=== PATIENT | female | born 1960 | race Caucasian/White ===

== ENCOUNTER 2017-01-22 17:37 | Emergency (ER) | payer OTHER ==
[~2017-01-22] VITALS: Ht 167.6 cm; Wt 105.0 kg
[~2017-01-22 17:37] MED LIST: LEVO125T3 PO; LORT5TAB PO; MELO15TA2 PO; PROT40TA PO
[2017-01-22 17:55] VITALS: BP 173/88; PULSE 75; RESP 19; TEMP 97.2; O2SAT 100
[2017-01-22] MEDS ORDERED: LEVO125T4 PO (18:11)
[2017-01-22] MEDS ORDERED: PANT40TA3 PO (18:11)
[2017-01-22] MEDS ORDERED: TYLETAB34 PO (18:11)
[2017-01-22] MEDS ORDERED: PROC5TAB PO (18:11)
--- NOTE | 2017-01-22 18:43 | PD ---
HPI Chief Complaint: Headache Time Seen by Provider: 18:29 Travel History International Travel<30 days: No Contact w/Intl Traveler<30days: No Traveled to known affect area: No History of Present Illness HPI 56yo F with PMH of parotid gland cancer s/p radiation 5 years ago here with c/o generalized headache started at 3pm today. Said she has been having headache in the last few months but this headache had a faster onset and feels more severe. Associated with photophobia and nausea. Denies any fever, neck pain, visual changes, chest pain, sob, n/v, abdominal pain, focal weakness or numbness. Pt has history of pituitary adenoma as well. She said she had an MRI brain at [facility] at 4pm today because it was scheduled and does not know the results. PFSH Past Medical History Cancer: Yes (Melanoma, parotid ) Cardiovascular Problems: Yes (Dysrhythmias ) Chemotherapy: No Diminished Hearing: No Endocrine: Yes Gastrointestinal Disorders: Yes (Crohn's) GERD: Yes Hypertension: Yes Medical other: Yes (Pituitary tumor ) Immunizations Current: No Radiation Therapy: Yes Thyroid Disease: Yes (Thyroidectomy) Tetanus Vaccination: > 5 Years Influenza Vaccination: No ?: Not Menopausal: Yes : 3 Para: 3 Ovarian Cysts: Yes Tubal Ligation: Yes Past Surgical History Abdominal Surgery: Yes (Gastric bypass) Appendectomy: Yes Cholecystectomy: Yes Endocrine Surgery: Yes (Thyroidectomy) Hysterectomy: Yes Other Surgery: Yes (Rt. parotidectomy ) Social History Alcohol Use: No Tobacco Use: No Substance Use: No Allergies-Medications (Allergen,Severity, Reaction): Coded Allergies: oxytetracycline (Unverified Allergy, Unknown, UNKNOWN, 01/22/17) Reported Meds & Prescriptions Reported Meds & Active Scripts Active Reported Prochlorperazine Maleate 5 Mg Tab 5 Mg PO TID PRN Levothyroxine (Levothyroxine Sodium) 125 Mcg Tab 125 Mcg PO DAILY Tylenol-Codeine #3 (Acetaminophen-Codeine) 300-30 mg Tab 1 Tab PO TID PRN Pantoprazole (Pantoprazole Sodium) 40 Mg Tab 40 Mg PO BID Review of Systems Except as stated in HPI: all other systems reviewed are Neg Physical Exam Narrative GENERAL: 56yo F in moderate distress. SKIN: Focused skin assessment warm/dry. HEAD: Atraumatic. Normocephalic. EYES: Pupils equal and round at 3mm bilaterally. No scleral icterus. No injection or drainage. ENT: No nasal bleeding or discharge. Mucous membranes pink and moist. NECK: Trachea midline. No JVD. CARDIOVASCULAR: Regular rate and rhythm. No murmur appreciated. RESPIRATORY: No accessory muscle use. Clear to auscultation. Breath sounds equal bilaterally. GASTROINTESTINAL: Abdomen soft, non-tender, nondistended. MUSCULOSKELETAL: No obvious deformities. No clubbing. No cyanosis. No edema. NEUROLOGICAL: Awake and alert. No obvious cranial nerve deficits. Motor grossly within normal limits. Normal speech. PSYCHIATRIC: Appropriate mood and affect; insight and judgment normal. Data Data Last Documented VS Vital Signs Date Time Temp Pulse Resp B/P (MAP) Pulse Ox O2 Delivery O2 Flow Rate FiO2 01/22/17 21:03 77 16 147/62 (90) 100 01/22/17 19:25 Room Air 01/22/17 17:[address] Brain W/O Iv Contrast(Rout) (01/22/17 ) Ondansetron Inj (Zofran Inj) (01/22/17 18:45) Prochlorperazine Inj (Compazine Inj) (01/22/17 18:45) Ketorolac Inj (Toradol Inj) (01/22/17 19:15) MDM Medical Decision Making Medical Screen Exam Complete: Yes Emergency Medical Condition: Yes Differential Diagnosis Migraine headache vs. tension headache vs. SAH Narrative Course 56yo F with headache that started at 3pm today. Pt states it is worst than her usual headache and onset is more acute. CT brain ordered to r/o SAH since it is less than 6 hours since onset of headache. Pt given zofran and compazine. CT brain negative so pt given toradol. Unable to obtain MRI results from [facility]. Pt seen at end of my shift and sign out to next team to reevaluate and disposition. Diagnosis Primary Impression: Headache Qualified Codes: R51 - Headache Yamila Bragg DO Jan 22, 2017 18:43
[2017-01-22] MEDS ORDERED: ONDANSETRON HCL 4 MG/2 ML VIAL IV PUSH ONE (18:45)
[2017-01-22] MEDS ORDERED: PROCHLORPERAZINE INJ 10 MG/2 ML VIAL IV PUSH ONE (18:45)
[2017-01-22] MEDS ORDERED: KETOROLAC TROMETHAMINE 30 MG/ML (IVP) VIAL IV PUSH ONE (19:15)
[2017-01-22 19:25] VITALS: BP 165/77; PULSE 82; RESP 16; O2SAT 99
--- NOTE | 2017-01-22 19:33 | PD ---
Physical Exam Date Seen by Provider: Jan 22, 2017 Time Seen by Provider: 19:32 Narrative Accepted in transfer of care from Dr. Bragg GENERAL: Well-developed well-nourished female in no acute distress no respiratory distress; GCS 15. Has just ambulated back to her room without difficulty. SKIN: Warm and dry. HEAD: Normocephalic. EYES: Pupils equal round reactive to light. No injection or drainage. Data Data Last Documented VS Vital Signs Date Time Temp Pulse Resp B/P (MAP) Pulse Ox O2 Delivery O2 Flow Rate FiO2 01/22/17 19:25 82 16 165/77 (106) 99 Room Air 01/22/17 17:[address] Brain W/O Iv Contrast(Rout) (01/22/17 ) Ondansetron Inj (Zofran Inj) (01/22/17 18:45) Prochlorperazine Inj (Compazine Inj) (01/22/17 18:45) Ketorolac Inj (Toradol Inj) (01/22/17 19:15) [facility] Medical Record Reviewed: Yes Supervised Visit with PEYTON: No Interpretation(s) Last Impressions Head CT 01/22/17 0000 Signed Impressions: Service Date/Time: January 18:57 - CONCLUSION: Negative exam. Jevon Navarro MD Vital Signs Date Time Temp Pulse Resp B/P (MAP) Pulse Ox O2 Delivery O2 Flow Rate FiO2 01/22/17 19:25 82 16 165/77 (106) 99 Room Air 01/22/17 19:25 99 Room Air 01/22/17 17:55 97.2 75 19 173/88 (116) 100 Differential Diagnosis Accepted in transfer of care from Dr. Bragg; please refer to her dictation Narrative Course Accepted in transfer of care from Dr. Bragg; follow up of pending CT and patient disposition CT brain noncontrast is read as no a "negative exam" per reading radiologist Dr. Navarro; this has been shared with the patient. It is 8:27 PM patient feels well states that her headache is resolving and wants to go home. Patient has medications at home for chronic discomfort/pain. Patient is otherwise hemodynamically stable. Patient is stable for outpatient management. Diagnosis Primary Impression: Cephalgia Referrals: Primary Care Physician call for appointment Patient Instructions: General Instructions Additional Instruction: Follow-up with primary care provider Return to the emergency department for any concerns or change condition Take acetaminophen/Tylenol as needed for fever 100.4F or greater Take ibuprofen (Advil/Motrin) may take as much as 800 mg as often as every 8 hours as needed for pain associated with inflammation avoid high-dose ibuprofen for greater than 2-3 days Med/Other Pt SpecificInfo: No Change to Meds Disposition: 01 DISCHARGE HOME Condition: Stable Tamar Pedro MD Jan 22, 2017 19:33
--- NOTE | 2017-01-22 19:49 | RADRPT ---
EXAM DATE/TIME: 01/22/2017 18:57 [facility] COMPARISON: No previous studies available for comparison. INDICATIONS : Cephalgia. RADIATION DOSE: 61.69 CTDIvol (mGy) MEDICAL HISTORY : Crohn's disease. Parotid cancer. SURGICAL HISTORY : Thyroidectomy. Gastric bypass. Hysterectomy.Parotidectomy. ENCOUNTER: Initial ACUITY: 1 day PAIN SCALE: 4/10 LOCATION: cranial TECHNIQUE: Multiple contiguous axial images were obtained of the head. Using automated exposure control and adj ustment of the mA and/or kV according to patient size, radiation dose was kept as low as reasonably a chievable to obtain optimal diagnostic quality images. DICOM format image data is available electro nically for review and comparison. FINDINGS: CEREBRUM: The ventricles are normal for age. No evidence of midline shift, mass lesion, hemorrhage or acute in farction. No extra-axial fluid collections are seen. POSTERIOR FOSSA: The cerebellum and brainstem are intact. The 4th ventricle is midline. The cerebellopontine angle i s unremarkable. EXTRACRANIAL: The visualized portion of the orbits is intact. SKULL: The calvaria is intact. No evidence of skull fracture. CONCLUSION: Negative exam. Jevon Navarro MD on January 22, 2017 at 19:46 Board Certified Radiologist. This report was verified electronically.
[2017-01-22 21:03] VITALS: BP 147/62
== END 2017-01-22 21:05 | disposition home or self-care (01) ==
LOC: PHED 17:37
DX: R51 Headache (principal); H53.149 Visual discomfort, unspecified; R11.0 Nausea; I10 Essential (primary) hypertension; K21.9 Gastro-esophageal reflux disease without esophagitis; K50.90 Crohn's disease, unspecified, without complications; E89.0 Postprocedural hypothyroidism
CPT/HCPCS: 70450; 96374; 96375; 99285; J0780; J1885; J2405

== ENCOUNTER 2017-04-17 11:19 | Emergency (ER) | payer OTHER ==
[~2017-04-17] VITALS: Ht 167.6 cm; Wt 105.5 kg
[~2017-04-17 11:19] MED LIST changes: -LEVO125T3 PO; +LEVO125T4 PO; -LORT5TAB PO; -MELO15TA2 PO; +PANT40TA3 PO; +PROC5TAB PO; -PROT40TA PO; +TYLETAB34 PO
[2017-04-17 11:44] VITALS: BP 160/75; PULSE 120; RESP 16; TEMP 97.9; O2SAT 100
[2017-04-17] MEDS ORDERED: SODIUM CHLORIDE 0.9% FLUSH 10 ML FLUSH IV FLUSH PRN (12:15)
[2017-04-17] MEDS ORDERED: ONDANSETRON HCL 4 MG/2 ML VIAL IVP ONE (12:15)
[2017-04-17] MEDS ORDERED: MORPHINE SULFATE 8 MG/ML INJ IV PUSH ONE (12:15)
[2017-04-17] MEDS ORDERED: LEVO112T2 PO (12:35)
[2017-04-17] MEDS ORDERED: HYDR12.57 PO (12:35)
[2017-04-17 12:36] LABS: AUTOMATED NEUTROPHIL # 6.2 TH/MM3 (1.8-7.7); BASOPHIL # 0.3 TH/MM3 (0-0.2); BASOPHIL % 4.4 % (0.0-2.0); EOSINOPHIL % 0.5 % (0.0-4.0); HEMATOCRIT 43.1 % (35.0-46.0); HEMO FLAGS DIFF FINAL; LYMPH % 6.2 % (9.0-44.0); LYMPHOCYTE # 0.4 TH/MM3 (1.0-4.8); MEAN CELL VOLUME 88.6 FL (80.0-100.0); MEAN CORPUSCULAR HEMOGLOBIN 29.2 PG (27.0-34.0); MONO % 3.5 % (0.0-8.0); NEUT % 85.4 % (16.0-70.0); PLATELET COUNT 246 TH/MM3 (150-450); RED BLOOD COUNT 4.87 MIL/MM3 (4.00-5.30); RED CELL DISTRIBUTION WIDTH 12.6 % (11.6-17.2); WHITE BLOOD COUNT 7.1 TH/MM3 (4.0-11.0)
[2017-04-17 12:38] VITALS: O2SAT 100
[2017-04-17 12:41] VITALS: BP 149/100; PULSE 104; O2SAT 98
[2017-04-17 12:51] LABS: CHLORIDE 108 MEQ/L (98-107); SODIUM (NA) 139 MEQ/L (136-145)
[2017-04-17 12:55] LABS: ANION GAP 10 MEQ/L (5-15); BICARBONATE 21.3 MEQ/L (21.0-32.0); BLOOD UREA NITROGEN 18 MG/DL (7-18)
[2017-04-17 12:57] LABS: APTT (PATIENT) 23.1 SEC (24.3-30.1); INTERNATIONAL NORMALIZED RATIO 0.9 RATIO; PROTHROMBIN TIME - PATIENT 10.2 SEC (9.8-11.6)
[2017-04-17 12:58] LABS: ALT (GPT) 31 U/L (10-53); AST (GOT) 37 U/L (15-37); GLOMERULAR FILTRATION RATE 57 ML/MIN (>89)
--- NOTE | 2017-04-17 12:58 | PD ---
HPI Chief Complaint: Abdominal Pain Time Seen by Provider: 12:03 Travel History International Travel<30 days: No Contact w/Intl Traveler<30days: No Traveled to known affect area: No History of Present Illness HPI Patient is a 57-year-old female presents emergency department for evaluation of epigastric abdominal pain radiating to her back as well as her left jaw. Patient states she has a history of hiatal hernia and is concerned that she might have a problem with that. States the pain started fairly suddenly about 2 hours ago. He also has a family history of heart disease. She has not tried anything prior to arrival states she is nauseous but can't throughout because she has a history of gastric bypass. Denies any fevers cough congestion diarrhea constipation. States when she went to bed last night she was feeling fine. PFSH Past Medical History Cancer: Yes (Melanoma, parotid ) Cardiovascular Problems: Yes (htn on meds) Chemotherapy: No Diminished Hearing: No Endocrine: Yes Gastrointestinal Disorders: Yes (Crohn's) GERD: Yes Hypertension: Yes Immunizations Current: No Radiation Therapy: Yes Thyroid Disease: Yes (Thyroidectomy) Tetanus Vaccination: Unknown Influenza Vaccination: Yes ?: Not Menopausal: Yes : 3 Para: 3 Ovarian Cysts: Yes Tubal Ligation: Yes Past Surgical History Abdominal Surgery: Yes (Gastric bypass) Appendectomy: Yes Cholecystectomy: Yes Endocrine Surgery: Yes (Thyroidectomy) Hysterectomy: Yes Other Surgery: Yes (Rt. parotidectomy, left knee melanoma) Social History Alcohol Use: No Tobacco Use: No Substance Use: No Allergies-Medications (Allergen,Severity, Reaction): Coded Allergies: oxytetracycline (Unverified Allergy, Unknown, UNKNOWN, 04/17/17) Reported Meds & Prescriptions Reported Meds & Active Scripts Active Ultram (Tramadol HCl) 50 Mg Tab 50 Mg PO Q6H PRN Reported Hydrochlorothiazide 12.5 Mg Cap 12.5 Mg PO DAILY Levothyroxine (Levothyroxine Sodium) 112 Mcg Tab 112 Mcg PO DAILY Prochlorperazine Maleate 5 Mg Tab 5 Mg PO TID PRN Pantoprazole (Pantoprazole Sodium) 40 Mg Tab 40 Mg PO BID Review of Systems Except as stated in HPI: all other systems reviewed are Neg Physical Exam Narrative GENERAL: Well-developed well-nourished, uncomfortable appearance. SKIN: Focused skin assessment warm/dry. HEAD: Atraumatic. Normocephalic. EYES: Pupils equal and round. No scleral icterus. No injection or drainage. ENT: No nasal bleeding or discharge. Mucous membranes pink and moist. NECK: Trachea midline. No JVD. CARDIOVASCULAR: Regular rate and rhythm. No murmur appreciated. 2+ bilateral equal pulses in all 4 extremities. RESPIRATORY: No accessory muscle use. Clear to auscultation. Breath sounds equal bilaterally. GASTROINTESTINAL: Abdomen soft, moderately tender in the epigastric area, no rebound no percussive tenderness., nondistended. Hepatic and splenic margins not palpable. MUSCULOSKELETAL: No obvious deformities. No clubbing. No cyanosis. No edema. NEUROLOGICAL: Awake and alert. No obvious cranial nerve deficits. Motor grossly within normal limits. Normal speech. PSYCHIATRIC: Appropriate mood and affect; insight and judgment normal. Data Data Last Documented VS Vital Signs Date Time Temp Pulse Resp B/P (MAP) Pulse Ox O2 Delivery O2 Flow Rate FiO2 04/17/17 15:13 04/17/17 14:52 96 95 04/17/17 11:44 97.9 16 Orders Orders Complete Blood Count With Diff (04/17/17 12:03) Comprehensive Metabolic Panel (04/17/17 12:03) Lipase (04/17/17 12:03) Lactic Acid (04/17/17 12:03) Prothrombin Time / Inr (Pt) (04/17/17 12:03) Act Partial Throm Time (Ptt) (04/17/17 12:03) Urinalysis - C+S If Indicated (04/17/17 12:03) Iv Access Insert/Monitor (04/17/17 12:03) Ecg Monitoring (04/17/17 12:03) Oximetry (04/17/17 12:03) Ondansetron Inj (Zofran Inj) (04/17/17 12:15) Sodium Chloride 0.9% Flush (Ns Flush) (04/17/17 12:15) Morphine Inj (Morphine Inj) (04/17/17 12:15) Troponin I (04/17/17 12:03) Cta Thor Abd Aorta W Iv C W3d (04/17/17 ) Iohexol 350 Inj (Omnipaque 350 Inj) (04/17/17 13:16) Troponin I (04/17/17 13:40) Promethazine Inj (Phenergan Inj) (04/17/17 13:45) Al-Mag Hy-Si 40-40-4 Mg/Ml Liq (Mag-Al P (04/17/17 13:45) Lidocaine 2% Viscous (Xylocaine 2% Visco (04/17/17 13:45) Ed Discharge Order (04/17/17 15:12) Electrocardiogram (04/17/17 11:55) Labs Laboratory Tests Test 04/17/17 12:26 04/17/17 14:05 04/17/17 14:16 White Blood Count 7.1 TH/MM3 Red Blood Count 4.87 MIL/MM3 Hemoglobin 14.2 GM/DL Hematocrit 43.1 % Mean Corpuscular Volume 88.6 FL Mean Corpuscular Hemoglobin 29.2 PG Mean Corpuscular Hemoglobin Concent 33.0 % Red Cell Distribution Width 12.6 % Platelet Count 246 TH/MM3 Mean Platelet Volume 7.7 FL Neutrophils (%) (Auto) 85.4 % Lymphocytes (%) (Auto) 6.2 % Monocytes (%) (Auto) 3.5 % Eosinophils (%) (Auto) 0.5 % Basophils (%) (Auto) 4.4 % Neutrophils # (Auto) 6.2 TH/MM3 Lymphocytes # (Auto) 0.4 TH/MM3 Monocytes # (Auto) 0.2 TH/MM3 Eosinophils # (Auto) 0.0 TH/MM3 Basophils # (Auto) 0.3 TH/MM3 CBC Comment DIFF FINAL Differential Comment Prothrombin Time 10.2 SEC Prothromb Time International Ratio 0.9 RATIO Activated Partial Thromboplast Time 23.1 SEC Blood Urea Nitrogen 18 MG/DL Creatinine 1.00 MG/DL Random Glucose 111 MG/DL Total Protein 7.6 GM/DL Albumin 4.0 GM/DL Calcium Level 9.3 MG/DL Alkaline Phosphatase 149 U/L Aspartate Amino Transf (AST/SGOT) 37 U/L Alanine Aminotransferase (ALT/SGPT) 31 U/L Total Bilirubin 0.7 MG/DL Sodium Level 139 MEQ/L Potassium Level 4.7 MEQ/L Chloride Level 108 MEQ/L Carbon Dioxide Level 21.3 MEQ/L Anion Gap 10 MEQ/L Estimat Glomerular Filtration Rate 57 ML/MIN Lactic Acid Level 1.6 mmol/L Troponin I LESS THAN 0.02 NG/ML LESS THAN 0.02 NG/ML Lipase 214 U/L Urine Collection Type CLEAN CATCH Urine Color YELLOW Urine Turbidity CLEAR Urine pH 5.0 Urine Specific Edwards 1.025 Urine Protein NEG mg/dL Urine Glucose (UA) NEG mg/dL Urine Ketones 15 mg/dL Urine Occult Blood NEG Urine Nitrite NEG Urine Bilirubin NEG Urine Leukocyte Esterase NEG Urine RBC 0-3 /hpf Urine WBC 0-2 /hpf Urine Squamous Epithelial Cells 0-5 /hpf Microscopic Urinalysis Comment CULT NOT INDICATED Urine Collection Time 14:16 MDM Medical Decision Making Medical Screen Exam Complete: Yes Emergency Medical Condition: Yes Differential Diagnosis Hiatal hernia, strangulation, entrapment, dissection seems improbable, ACS seems improbable. Reflux, peptic ulcer disease. Narrative Course Patient roomed emergency department, uncomfortable appearing she was given pain medicine, given dissection and aortic pathology is on the differential she was taken to CAT scan for CT angiography, hiatal hernia is unimpressive, labs are reassuring, patient is feeling better. GI cocktail was given as well. Much more comfortable her exam is benign on reevaluation. Discussed that her symptoms could be related to ACS and she was offered the opportunity to be admitted for a stress test, she would rather follow up with a primary care physician and think she can do this in short order, think this is reasonable as her symptoms are highly atypical for ACS, I discussed that until a stress test is done and she is at risk of major adverse cardiac event including and disability in the immediate post visit period. She verbalized understanding and agreement based on how well she felt she would like to go home to follow-up with her silk screener which she has an appointment near future. She is stable for discharge. Diagnosis Primary Impression: Epigastric abdominal pain Med/Other Pt SpecificInfo: Prescription(s) given Scripts Tramadol (Ultram) 50 Mg Tab 50 MG PO Q6H Y for PAIN, #15 TAB 0 Refills Prov: Kit Reyes MD 04/17/17 Disposition: 01 DISCHARGE HOME Condition: Stable Kit Reyes MD Apr 17, 2017 12:58
[2017-04-17 12:59] LABS: POTASSIUM 4.7 MEQ/L (3.5-5.1)
[2017-04-17 13:00] LABS: TOTAL BILIRUBIN ADULT 0.7 MG/DL (0.2-1.0)
[2017-04-17 13:01] LABS: ALKALINE PHOSPHATASE 149 U/L (45-117)
[2017-04-17] MEDS ORDERED: IOHEXOL 350 MG/ML 10 ML VIAL (for RAD DIAG) IVCONTRAST ONE (13:16)
[2017-04-17 13:30] VITALS: BP 144/84; PULSE 104; O2SAT 96
[2017-04-17] MEDS ORDERED: PROMETHAZINE INJ 25 MG/ML VIAL IM ONE (13:45)
[2017-04-17] MEDS ORDERED: ALUMINUM/MAGNESIUM/SIMETH 30 ML CUP PO ONE (13:45)
[2017-04-17] MEDS ORDERED: LIDOCAINE VISCOUS 2% SOLN 15 ML UDC PO ONE (13:45)
--- NOTE | 2017-04-17 14:10 | RADRPT ---
EXAM DATE/TIME: 04/17/2017 12:54 [facility] COMPARISON: CT BRAIN W/O CONTRAST, January 22, 2017, 18:57. INDICATIONS : Epigastric pain, nausea and vomiting. Evaluate for aortic dissection. IV CONTRAST: 90 cc Omnipaque 350 (iohexol) IV RADIATION DOSE: 22.56 CTDIvol (mGy) MEDICAL HISTORY : Crohn's disease. Gastroesophageal reflux disease. Hypertension.Parotid cancer. SURGICAL HISTORY : Tubal ligation. Gastric bypass. Cholecystectomy.Appendectomy. Hysterectomy. Parotidectomy. ENCOUNTER: Initial ACUITY: 1 day PAIN SCALE: 10/10 LOCATION: Epigastric. TECHNIQUE: Volumetric scanning was performed using a multi-row detector CT scanner. The data was post processed with a variety of visualization algorithms including full volume maximum intensity projection, multi -planar sliding thin slab reformation, curved planar reformation, and surface rendering techniques. Using automated exposure control and adjustment of the mA and/or kV according to patient size, radiat ion dose was kept as low as reasonably achievable to obtain optimal diagnostic quality images. DICOM format image data is available electronically for review and comparison. FINDINGS: Thoracic aorta: The aortic root is normal in caliber. The tubular portion of the ascending aorta is normal in size me asuring 3 cm. There is normal anatomic branching of the great vessels from the arch. The origins of t he great vessels are widely patent. The descending thoracic aorta is normal in caliber. There is no e vidence of dissection. No significant atherosclerotic disease is seen. Abdominal aorta: The celiac and SMA origins are widely patent. There are single renal arteries bilaterally. The renal arteries are widely patent. The infrarenal aorta is normal in caliber. The LOUISE is patent. Pelvis: The common iliac, internal iliac and external iliac circulation is widely patent. CT source data: Imaging through the pulmonary parenchyma demonstrates a 6 mm calcified granuloma in the left upper lo be. The lungs are otherwise clear. The heart is normal in size. There is no significant hilar or medi astinal adenopathy. Note is made of a sizable hiatal hernia. The liver, spleen, pancreas, adrenal gla nds and kidneys are normal in appearance. There is no retroperitoneal adenopathy. There are postsurgi bambi changes in the distal stomach and proximal small bowel suggesting gastric bypass. There is no silvio e air or free fluid. No findings to indicate bowel obstruction are seen. The bony structures visualiz ed are grossly intact. CONCLUSION: 1. The thoracic and abdominal aorta are normal in appearance. There is no evidence of dissection. 2. 6mm calcified granuloma in the left upper lobe. 3. Hiatal hernia. 4. Post gastric bypass changes. Jordan Mcgill MD on April 17, 2017 at 13:48 Board Certified Radiologist. This report was verified electronically.
[2017-04-17 14:25] LABS: BLOOD, URINE NEG (NEG); GLUCOSE,URINE NEG (NEG); KETONE, URINE 15 mg/dL (NEG); NITRITE,URINE NEG (NEG)
[2017-04-17 14:34] LABS: METHOD OF COLLECTION CLEAN CATCH; URINE COLOR YELLOW (YELLW/STRAW)
[2017-04-17 14:35] LABS: COMMENT (UR) CULT NOT INDICATED; CULTURE IF INDICATED CULT NOT INDICATED; RBC, URINE 0-3 /hpf (0-3); SQUAMOUS EPITHELIAL CELL URINE 0-5 /hpf (0-5); WBC, URINE 0-2 /hpf (0-5)
[2017-04-17 14:52] VITALS: BP 135/80; PULSE 96; O2SAT 95
[2017-04-17] MEDS ORDERED: TRAM50 PO (15:11)
--- NOTE | 2017-04-19 23:40 | EKG ---
Date Performed: 04/17/2017 Time Performed: 11:55:46 PTAGE: 57 years EKG: SINUS TACHYCARDIA POSSIBLE LEFT ATRIAL ENLARGEMENT NONSPECIFIC T-WAVE ABNORMALITY ABNORMAL RHYTHM ECG PREVIOUS TRACING : 05/12/2006 16.55 Compared to prior tracing no significant change DOCTOR: Stanley Fonseca Interpretating Date/Time 04/19/2017 23:39:56
== END 2017-04-17 15:27 | disposition home or self-care (01) ==
LOC: PHED 11:19
DX: R10.13 Epigastric pain (principal); R68.84 Jaw pain; M54.9 Dorsalgia, unspecified; R94.31 Abnormal electrocardiogram [ECG] [EKG]; I10 Essential (primary) hypertension; E07.9 Disorder of thyroid, unspecified; Z98.84 Bariatric surgery status; Z85.828 Personal history of other malignant neoplasm of skin; Z86.79 Personal history of other diseases of the circulatory system; Z87.19 Personal history of other diseases of the digestive system; Z82.49 Family history of ischemic heart disease and other diseases of the circulatory system
CPT/HCPCS: 71275; 74174; 80053; 81001; 83605; 83690; 84484; 85025; 85610; 85730; 93005; 96372; 96374; 96375; 99285; J2270; J2405; J2550; Q9967